=== PATIENT | female | born 1995 | race Caucasian/White ===

== ENCOUNTER 2019-08-29 00:03 | Emergency (ER) | payer BC ==
[~2019-08-29] VITALS: Ht 180.3 cm; Wt 86.2 kg
[2019-08-29] MEDS ORDERED: TYLENOL WITH CO1 TA1 PO (01:52)
[2019-08-29 02:11] VITALS: BP 139/76
== END 2019-08-29 02:11 | disposition home or self-care (01) ==
LOC: M.ERS 00:03
DX: M84.375A Stress fracture, left foot, initial encounter for fracture (principal); Z88.2 Allergy status to sulfonamides; Z88.8 Allergy status to other drugs, medicaments and biological substances; X58.XXXA Exposure to other specified factors, initial encounter; Y93.89 Activity, other specified; Y92.89 Other specified places as the place of occurrence of the external cause; Y99.8 Other external cause status